=== PATIENT | male | born 1970 | race Caucasian/White ===

== ENCOUNTER → 2016-12-02 | Outpatient (CLI) | payer OTHER ==
--- NOTE | 2016-12-02 17:32 | DX ---
Right Fourth Finger, 3 Views, at 3:33 p.m. Clinical History: 46-year-old male with right ring finger pain and swelling at the PIP joint. ICD-10 Diagnostic Code: S66.911A. Comparison Study: Right wrist, dated June 14, 2013. Findings: There is some soft tissue swelling centered at the fourth finger PIP joint. However, there is no fracture, dislocation, marginal erosion, avulsion, or radiopaque foreign body. There is no asy mmetric joint space narrowing or subluxation. Impression: Soft tissue swelling, with no acute osseous abnormality.
== END ==
LOC: BMCIMAGING 15:34
PROVIDERS: ATTEND Nurse Practitioner Adult Health
DX: M79.644 Pain in right finger(s) (principal); R22.31 Localized swelling, mass and lump, right upper limb